=== PATIENT | male | born 1985 | race Caucasian/White ===

== ENCOUNTER → 2019-02-05 | Emergency (ER) | payer BC, OTHER ==
--- NOTE | 2019-02-05 21:22 | ED EENT ---
History of Present Illness General Stated Complaint: BUG IN HIS EAR Source: patient Exam Limitations: no limitations History of Present Illness Date Seen by Provider: Feb 05, 2019 Time Seen by Provider: 21:21 Initial Comments Bug flew into left ear just prior to arrival Timing/Duration: abrupt Associated Symptoms: denies symptoms Allergies and Home Medications Patient Home Medication List Home Medication List Reviewed: Yes Review of Systems Review of Systems Constitutional: see HPI Eyes: No Symptoms Reported Ears: See HPI Nose: no symptoms reported Mouth: no symptoms reported Throat: no symptoms reported Respiratory: no symptoms reported Cardiovascular: no symptoms reported Musculoskeletal: no symptoms reported Past Vnuvzwb-Uvuzoz-Vfrvdq Hx Patient Social History Recent Foreign Travel: No Contact w/Someone Who Travel: No Physical Exam Height, Weight, BMI Height: '" Weight: lbs. oz. kg; BMI Method: General Appearance: WD/WN, no apparent distress Eyes: bilateral eye normal inspection, bilateral eye PERRL, bilateral eye EOMI Ears: left ear other (there is an insect in the left ear canal easily removed with small alligator forceps, a bit of blood in the ear canal, Q-tip was dipped and antibiotic ointment and gently applied to the ear canal. Tympanic membrane is intact. The bug removed from the identified but it was removed in its entirety) Mouth/Throat: normal mouth inspection, pharynx normal Neck: non-tender, full range of motion Neurologic/Psychiatric: alert, normal mood/affect, oriented x 3 Skin: normal color, warm/dry Departure Impression Primary Impression: Foreign body in ear Qualified Codes: T16.2XXA - Foreign body in left ear, initial encounter Disposition: 01 HOME, SELF-CARE Condition: Stable Departure-Patient Inst. Decision time for Depature: 21:22 Referrals: NO,LOCAL PHYSICIAN (PCP/Family) Primary Care Physician Patient Instructions: NO INSTRUCTIONS GIVEN Add. Discharge Instructions: Follow-up with your family doctor within one week if you have any worsening pain in the ear, Swelling or fevers. Return to ER for any concerns. DARREN CHIANG APRN Feb 05, 2019 21:22
== END | disposition home or self-care (01) ==
LOC: ER 21:09
DX: T16.2XXA Foreign body in left ear, initial encounter (principal)